=== PATIENT | male | born 1940 | race Caucasian/White ===

== ENCOUNTER 2023-06-18 13:17 | Emergency (ER) | payer MEDICARE, OTHER, SELFPAY ==
[2023-06-18 13:34] VITALS: BP 117/79; PULSE 102; RESP 16; TEMP 36.8; O2SAT 93; BMI 22.2
[2023-06-18 19:36] VITALS: BP 120/85; PULSE 91; RESP 16; O2SAT 92
--- NOTE | 2023-06-18 20:47 | W.ED.SKABFB ---
HPI - Skin/Abscess/Foreign Bdy General: Chief complaint: Skin/Abscess/Foreign Body Stated complaint: bump on back Time Seen by Provider: 06/18/23 13:20 History of Present Illness: 83-year-old male with a history of a cyst on his upper back which he has had for quite some time. A few days ago, it became more painful. It is red. It is now draining some smelly brown fluid according to his son and him. No fever. No vomiting. Associated symptoms: Deny chills, fever(s) or vomiting Review of Systems Const: Denies: fever(s) or chills Card: Denies: chest pain Resp: Denies: dyspnea GI: Denies: vomiting Skin/Breast: Reports: rash and erythema Physical Exam Const: COMMON NORMALS: no acute distress GENERAL APPEARANCE: cooperative; not ill appearing and not frail appearing HENMT: COMMON NORMALS: normocephalic, atraumatic and Normal external nose present HEAD & SCALP: normocephalic and atraumatic FACE & SINUS: normal facial exam and face symmetric NOSE: Normal external nose present Eye: COMMON NORMALS: Equal, round and reactive pupils present and EOMs intact bilaterally PUPIL: Yes Equal, round and reactive pupils present Neck/C-Spine: GENERAL: Yes trachea midline Chest: CHEST: Yes Symmetrical chest wall rise Resp: COMMON NORMALS: normal respiratory effort, No retractions, No use of accessory muscles and clear to auscultation bilaterally AUSCULTATION: clear to auscultation bilaterally Cardio: COMMON NORMALS: regular rate and regular rhythm RATE: regular rate RHYTHM: regular rhythm GI: COMMON NORMALS: Normal to inspection, nondistended, normoactive bowel sounds present Extremity: COMMON NORMALS: no pedal edema Neuro: LILLI COMA SCALE: document GCS findings Lilli coma scale eye opening: Spontaneous [place] coma scale verbal response: Orientated [place] coma scale motor response: Obey commands Lilli coma scale total score: 15 SENSORY EXAM: Yes extremities (intact) Psych: COMMON NORMALS: speech normal SPEECH: Yes normal speech Skin: NARRATIVE SKIN EXAM: Right upper back, sebaceous cyst noted with surrounding cellulitis. No active drainage currently. 4 cm in size. Procedures Abscess I/D Site: back Side (if applicable): right Local Anesthetic: lidocaine 1% and with epi Amount of anesthesia used (mL): 6 Technique: incised with #11 blade Amount of fluid expressed (mL): 8 Irrigation: No Packing used?: plain Course Vital Signs: Vital signs: Vital Signs Temperature 98.2 F 06/18/23 13:34 Pulse Rate 91 06/18/23 19:36 Respiratory Rate 16 06/18/23 19:36 Blood Pressure 120/85 06/18/23 19:36 Pulse Oximetry 92 06/18/23 19:36 Oxygen Delivery Me thod Room Air 06/18/23 13:34 MDM - Skin/Abscess/Foreign Bdy Medicial Decision Making Sebaceous cyst incised, drained. Probed. Packed. Then, doxycycline. Wound check in a few days. Return for worsening symptoms. No radiology studies performed this visit Discharge Plan Discharge Patient Disposition: Home Clinical Impression: Cellulitis, Sebaceous cyst Condition: Stable Prescriptions: New doxycycline hyclate 100 mg tablet 100 mg PO BID 7 Days Qty: 14 0RF mupirocin 2 % ointment 1 applic topical BID Qty: 50 0RF Discharge Orders: Discharge ED (Routine); Ordered 06/18/23 Ordered By: Rajeev Farnsworth Referrals: Francisca Steen MD [Staff Physician] - 1-3 days Patient Instructions: Cellulitis (ED), Cyst (ED), Opioid Safety, Pain Management Activity Restrictions/Additional Instructions: Medications as directed. Dressing changes once daily. Follow-up with your doctor, or a local doctor in 3 days for wound check. You may also follow-up with urgent care for this. If packing begins to come out, keep ribbon trimmed at skin level with a pair of scissors. If it falls out, do not try to repack. Coding Level of Care Code ED Injection Specialist for Eren Hodges
[2023-06-18] MEDS: doxycycline 100 mg Tablet PO (20:59)
[2023-06-18] MEDS: oxyCODONE-APAP 5-325 mg Tablet 1 TAB PO (21:00)
== END 2023-06-18 21:06 | disposition home or self-care (01) ==
PROVIDERS: Emergency Provider Emergency Medicine
DX: L03.312 Cellulitis of back [any part except buttock and flank] (principal); L72.3 Sebaceous cyst
CPT/HCPCS: 10060; 99283

== ENCOUNTER 2024-12-12 07:50 | Emergency (ER) | payer MEDICARE, OTHER, SELFPAY ==
[2024-12-12 08:17] VITALS: BP 142/95; PULSE 65; RESP 16; TEMP 36.6; O2SAT 95; BMI 23.6
--- NOTE | 2024-12-12 08:30 | XRR_ITS ---
PROCEDURE INFORMATION: Exam: XR Left Foot Exam date and time: 12/12/2024 8:33 AM Age: 84 years old Clinical indication: Pain; Foot; Left; Infected lt big toe TECHNIQUE: Imaging protocol: Radiologic exam of the left foot. Views: 3 or more views. COMPARISON: No relevant prior studies available. FINDINGS: Bones/joints: Degenerative changes at the 1st MTP joint. There is no fracture or joint dislocation. Bony alignment is preserved. Soft tissues: Normal. XR/XR foot LT min 3V* [id number] IMPRESSION: 1. DJD as described. 2. No radiographic evidence to suggest osteomyelitis
--- NOTE | 2024-12-12 08:31 | W.ED.EXTPRO ---
HPI - Extremity Problem General: Chief complaint: Extremity Injury, Lower Stated complaint: lt toe inj Time Seen by Provider: 12/12/24 08:20 History of Present Illness: 84-year-old male who presents to the emergency room with a partially avulsed left great toenail. He has a fungus on his nail partially detached it is mildly painful he is on Eliquis and has some slight bleeding. He denies any other trauma to the foot Related Data Home Medications ?Medication ?Instructions ?Recorded ?Confirmed amlodipine 5 mg tablet 5 mg PO DAILY 12/12/24 12/12/24 apixaban 5 mg tablet (Eliquis) 5 mg PO BID 12/12/24 12/12/24 hydrochlorothiazide 25 mg tablet 25 mg PO DAILY 12/12/24 12/12/24 thyroid (pork) 15 mg tablet (GASFITTER 15 mg PO DAILY 12/12/24 12/12/24 Thyroid) Physical Exam Const: COMMON NORMALS: no acute distress GENERAL APPEARANCE: cooperative and comfortable ORIENTATION/CONSCIOUSNESS: Yes awake, Yes oriented to person, Yes oriented to place and Yes oriented to time HENMT: COMMON NORMALS: normocephalic and atraumatic HEAD & SCALP: normocephalic and atraumatic Resp: COMMON NORMALS: normal respiratory effort and No retractions Extremity: OTHER: No trauma to the left foot. The left great toenail is partially avulsed there is small amount of bleeding some dried blood present. Nail is onychomycotic. It is still connected at the base. No deformity no laceration Neuro: SENSORIUM/ORIENTATION: Yes oriented to person, Yes oriented to place and Yes oriented to time Skin: COMMON NORMALS: no rashes or lesions noted GENERAL SKIN EXAM: no rashes or lesions noted Course Vital Signs: Vital signs: Vital Signs Temperature 97.8 F 12/12/24 08:17 Pulse Rate 65 12/12/24 09:09 Respiratory Rate 16 12/12/24 08:17 Blood Pressure 129/87 12/12/24 09:09 Pulse Oximetry 92 12/12/24 09:09 MDM - Extremity (Nontraumatic) Medical Decision Making Dr. Thompson consulted. He remove the toe. Reported minimal bleeding. He recommends Epsom salt soaks daily apply topical antibiotic ointment [id number] to the wound and change dressing daily follow-up with him in the office in a week Lab Data Radiology Impressions Foot X-Ray 12/12/24 08:30 IMPRESSION: 1. DJD as described. 2. No radiographic evidence to suggest osteomyelitis All radiology interpretation(s) finalized by discharge Discharge Plan Discharge Patient Disposition: Home Clinical Impression: Avulsion of toenail of right foot, Onychomycosis of left great toe, On continuous oral anticoagulation Condition: Stable Prescriptions: No Action amlodipine 5 mg tablet 5 mg PO DAILY hydrochlorothiazide 25 mg tablet 25 mg PO DAILY thyroid (pork) [GASFITTER Thyroid] 15 mg tablet 15 mg PO DAILY Eliquis 5 mg tablet 5 mg PO BID Discharge Orders: Discharge ED (Routine); Ordered 12/12/24 Ordered By: Guido Burdick Discharge Diet: Usual diet Discharge Activity: Increase activity as tolerated Patient Instructions: Opioid Safety, Pain Management Activity Restrictions/Additional Instructions: Thank you for choosing [facility] for your healthcare needs today. It is very important that you follow up as instructed or that you return to the Emergency Department should you have concerns or if your condition changes or worsens in any way. You were seen in the emergency room with complaint of left great toe pain. Your left great toenail had a fungal infection and was partially avulsed. Podiatry was consulted they removed the nail. They recommend topical [id number] antibiotic ointment Epsom salt soaks daily and follow-up with them within the next week Print Language: Citizen Of [place] Coding Level of Care Code ED [employer] for Eren Hodges
--- NOTE | 2024-12-12 08:52 | PM.CONSULT ---
Providers/Reason For Consult Consulting Physician/Specialty*: Lion SpencePChanell/podiatry Reason for Consult*: Left hallux trauma History of Present Illness History of Present Illness Thierry Quach is a 84 year old male who sustained an injury to his left hallux. The nail was lysed and bleeding was noted. Patient was brought to the emergency department with concern over bleeding of left great toe. X-rays were obtained in the emergency department which showed no fracture. Podiatry was consulted to evaluate and provide further treatment recommendations. Review of Systems General: Reports: 10 or more systems reviewed and unremarkable except in HPI and below Const: Denies: fever(s), chills, fatigue or malaise Eyes: Denies: change in vision ENMT: Denies: throat pain Card: Reports: swelling of feet/ankles; Denies: chest pain or palpitations Resp: Denies: dyspnea GI: Denies: abdominal pain, nausea or vomiting Musc: Reports: extremity swelling; Denies: limited range of motion Skin/Breast: Reports: dry skin, nail changes and change in hair Neuro: Reports: numbness in extremities and sensory changes Medications/Allergies Home Medications ?Medication ?Instructions ?Recorded ?Confirmed ?Last Taken ?Type amlodipine 5 mg tablet 5 mg PO DAILY 12/12/24 12/12/24 12/11/24 History apixaban 5 mg tablet (Eliquis) 5 mg PO BID 12/12/24 12/12/24 12/11/24 History hydrochlorothiazide 25 mg tablet 25 mg PO DAILY 12/12/24 12/12/24 12/11/24 History thyroid (pork) 15 mg tablet (PATHOLOGY SECRETARY/TRANSCRIPTIONIST 15 mg PO DAILY 12/12/24 12/12/24 12/11/24 History Thyroid) Vitals/I&O/Wt Last Vital Signs Temp 97.8 F 12/12/24 08:17 Pulse 65 12/12/24 08:17 Resp 16 12/12/24 08:17 BP 142/95 12/12/24 08:17 Pulse Ox 95 12/12/24 08:17 Weight last 48 hrs Weight 165 lb Physical Exam Narrative: BELOW IS A FOCUSED LOWER EXTREMITY EXAM GENERAL: A&O x 3 VASCULAR: DP/PT pulses palpable 2/4 with CFT intact, <3seconds to distal digits DERMATOLOGICAL: Skin turgor and temperature is within normal limits. No interdigital maceration noted. Thickened dystrophic left hallux nail with lysis and dry heme mild sanguinous ooze. Overall hemostasis noted MUSCULOSKELETAL: Pain to palpation of left hallux nail plate NEUROLOGICAL: Neurological sensation to the affected foot and ankle is present through L4-S1 dermatomes with no hyper/hypoesthesias, negative Tinel or Valleix's sign IMAGING: Three-view x-rays left foot taken in the emergency department were independently interpreted by me. These show no fracture or dislocation. A&P Assessment and plan (1) Onycholysis of toenail: Plan Patient was seen in the emergency department - Left hallux nail lysis - Procedure performed in the emergency department for left hallux total nail removal. Consent was obtained. Left hallux was anesthetized using 9 cc of 1% lidocaine plain. Left hallux nail plate was grasped and avulsed from the toe without incident. Hemostasis was achieved via manual compression. Dressing applied to the area with Adaptic, Silvadene cream, 2 x 2 gauze and 1 inch Coban. Patient tolerated procedure well and without complication - Follow-up with podiatry in outpatient setting within 1 week PDMP PDMP Reviewed: Not Reviewed Coding Level of Care Code Acute Code for Chg Fwd Diagnoses Onycholysis of toenail L60.1
[2024-12-12 09:09] VITALS: BP 129/87; PULSE 65; O2SAT 92
--- NOTE | 2024-12-12 09:10 | DCPLANNER ---
Message sent to Podiatry
== END 2024-12-12 09:11 | disposition home or self-care (01) ==
PROVIDERS: Emergency Provider Family Medicine
DX: S91.204A Unspecified open wound of right lesser toe(s) with damage to nail, initial encounter (principal); B35.1 Tinea unguium; Z79.01 Long term (current) use of anticoagulants; X58.XXXA Exposure to other specified factors, initial encounter
CPT/HCPCS: 73630; 99283

== ENCOUNTER → 2024-12-19 08:22 | Outpatient (BNVA) | payer MEDICARE, OTHER, SELFPAY | PROVIDERS: Visit Provider Podiatrist Foot & Ankle Surgery | DX: L60.8 Other nail disorders (principal); L60.1 Onycholysis | CPT/HCPCS: 99213 ==